=== PATIENT | male | born 1990 | race American Indian/Alaskan Native ===

== ENCOUNTER 2017-10-11 00:05 | Emergency (ER) | payer SELFPAY ==
[2017-10-11 01:43] LABS: Hematocrit 39.2 % (35.5-45.6); Hemoglobin 13.5 gm/dl (11.8-15.2); Mean Corpuscular HGB Conc 35 % (32-34); Mean Corpuscular Hemoglobin 34 pg (28-32); Mean Corpuscular Volume 100 fl (84-94); Platelet Count 207 K/mm3 (140-440); Red Blood Count 3.93 M/mm3 (3.65-5.03); White Blood Count 7.1 K/mm3 (4.5-11.0)
[2017-10-11 01:52] LABS: Anion Gap 18 mmol/L; BUN/Creatinine Ratio 10; Blood Urea Nitrogen 8 mg/dL (9-20); Carbon Dioxide 26 mmol/L (22-30); Chloride 99.4 mmol/L (98-107); Glucose 124 mg/dL (75-100); Potassium 3.8 mmol/L (3.6-5.0); Sodium 140 mmol/L (137-145)
[2017-10-11 02:06] LABS: Urine Drugs of Abuse Note Disclamer
[2017-10-11 02:40] LABS: Bilirubin,Urine NEG (Negative); Blood,Urine NEG (Negative); Ketones,Urine NEG (Negative); Leukocyte Esterase,Urine NEG (Negative); Mucus,Urine FEW /HPF; Nitrite,Urine NEG (Negative); Protein,Urine <15 mg/dL mg/dL (Negative); Urobilinogen,Urine < 2.0 mg/dL (<2.0)
[2017-10-11 05:04] LABS: Anisocytosis 1+; Basophils % (Manual) 0 % (0.0-1.8); Blastocytes % (Manual) 0 %; Eosinophils % (Manual) 0 % (0.0-4.3)
[2017-10-11 05:05] VITALS: BP 110/60
[2017-10-11 05:05] LABS: Diff Status Complete; Stomatocytes Few
[2017-10-11] MEDS ORDERED: ZOFRAN ODT ONE (05:08)
[2017-10-11] MEDS ORDERED: ZOFRAN ODT PO ONE (05:09)
--- NOTE | 2017-10-11 05:11 | Emergency Department Report ---
HPI - General Chief Complaint: Medical Clearance Time Seen by Provider: 10/11/17 03:30 - HPI HPI: The patient's 27-year-old male presents for evaluation of agitation. The patient reports constant severe anger and agitation earlier this evening. He states that his anger was aggravated by alcohol use. He admits to excessive consumption of alcohol. The patient denies fever, headache, unexplained weight loss or weight gain, heat or cold intolerance, skin, hair, or nail changes, neuro deficits, suicidal or homicidal ideations, or auditory or visual hallucinations. ED Past Medical Hx - Past Medical History Previous Medical History?: Yes Hx Seizures: Yes Hx Psychiatric Treatment: Yes (schizophrenia,Bipolar) Additional medical history: mitral valve prolapse, pericarditid, elevated troponins, Right Bundle Branch Block, Mom states he needs a Heart Valve Replacement Surgery noncompliant x 2 years with his heart medications - Surgical History Past Surgical History?: Yes Additional Surgical History: Appy, - Social History Smoking Status: Current Every Day Smoker Substance Use Type: Alcohol, Marijuana, Other - Medications Home Medications: Home Medications Medication Instructions Recorded Confirmed Last Taken Type QUEtiapine [SEROquel] 25 mg PO QID 10/11/17 10/11/17 Unknown History Quetiapine Fumarate [SEROquel] 100 mg PO QHS 10/11/17 10/11/17 Unknown History clonazePAM [Klonopin] 1 mg PO BID 10/11/17 10/11/17 Unknown History ED Review of Systems ROS: Stated complaint: MEDICAL CLEARANCE Other details as noted in HPI Constitutional: denies: fever ENT: denies: throat or neck pain Respiratory: denies: cough, shortness of breath Cardiovascular: denies: chest pain Endocrine: denies unexplained weight loss or gain Gastrointestinal: denies: abdominal pain, nausea Genitourinary: denies: dysuria Musculoskeletal: denies: leg swelling Skin: denies: rash Neurological: denies: headache Hematological/Lymphatic: denies: easy bleeding or easy bruising Psych: reports anger and paranoia denies sadness or hopelessness Physical Exam - Physical Exam Vital Signs: Vital Signs 10/11/17 10/11/17 10/11/17 00:55 02:04 02:08 Temperature 97.7 F 98.0 F Pulse Rate 95 H 74 Respiratory 20 20 Rate Blood Pressure 123/77 Blood Pressure 107/57 [Left] O2 Sat by Pulse 97 98 98 Oximetry 11/14/17 05:00 Temperature 98.0 F Pulse Rate 75 Respiratory 20 Rate Blood Pressure Blood Pressure 110/60 [Left] O2 Sat by Pulse 98 Oximetry Physical Exam: General: well-nourished, well-developed, no acute distress Head: Normocephalic, atraumatic Eyes: normal sclera ENT: Mucous membranes are pale and dry Neck: No neck stiffness, no cervical adenopathy Respiratory: Breath sounds equal bilaterally, no wheezing, rales, or rhonchi Cardio: S1 and S2 present, no murmurs, rubs, gallops, capillary refill is delayed Abdomen: Normoactive bowel sounds, soft abdomen, no rigidity, no guarding or rebound tenderness Musc: No pitting edema Skin: No rash Neuro: no facial drooping, normal speech Psych: Flat affect, poor insight, depressed mood, no suicidal or homicidal ideations, no hallucinations ED Course Vital Signs 10/11/17 10/11/17 10/11/17 00:55 02:04 02:08 Temperature 97.7 F 98.0 F Pulse Rate 95 H 74 Respiratory 20 20 Rate Blood Pressure 123/77 Blood Pressure 107/57 [Left] O2 Sat by Pulse 97 98 98 Oximetry 10/11/17 05:00 Temperature 98.0 F Pulse Rate 75 Respiratory 20 Rate Blood Pressure Blood Pressure 110/60 [Left] O2 Sat by Pulse 98 Oximetry ED Medical Decision Making - Lab Data Result diagrams: 10/11/17 01:20 10/11/17 01:20 - Medical Decision Making The patient was seen and examined by myself. The patient is placed on a quality assurance monitor final and continuous pulse ox. On initial evaluation, the patient was found to be in no distress. Labs are obtained. Revealed mildly elevated EtOH level of 0.06, and positive urine drug screen for marijuana. Lab results otherwise are grossly unremarkable. The patient is medically clear. Mental health is consulted. Mental health evaluates the patient and agrees that the patient is negative for findings concerning for risk of harm to himself or others or for findings concerning for acute psychosis. The patient is discharged in the care of his mother with resources for outpatient substance abuse treatment. Critical care attestation.: If time is entered above; I have spent that time in minutes in the direct care of this critically ill patient, excluding procedure time. ED Disposition Clinical Impression: ETOH abuse, Behavior concern in adult, Polysubstance abuse Disposition: DC-01 TO HOME OR SELFCARE Is pt being admited?: No Does the pt Need Aspirin: No Condition: Stable Instructions: Abuse of Alcohol (ED), Medical Clearance for Substance Abuse Treatment (ED), Polysubstance Abuse (ED) Referrals: [facility] [Outside] - 3-5 Days Time of Disposition: 05:06
== END 2017-10-11 05:27 | disposition home or self-care (01) ==
LOC: ED 00:05
DX: F10.10 Alcohol abuse, uncomplicated (principal); F19.10 Other psychoactive substance abuse, uncomplicated; F31.9 Bipolar disorder, unspecified; F20.9 Schizophrenia, unspecified; F17.200 Nicotine dependence, unspecified, uncomplicated; F12.10 Cannabis abuse, uncomplicated
CPT/HCPCS: 36415; 80048; 80307; 81001; 85007; 85025; 93005; 93010; 99284; G0480; 80320; Q0162